=== PATIENT | female | born 1955 | race Caucasian/White ===

== ENCOUNTER → 2016-06-19 | Outpatient (CLI) | payer MEDICARE, OTHER ==
[~2016-06-19] MED LIST: ASPIRIN EC81 MG PO; CALCIUM 600 +1 EAC2 PO; CLARITIN10 M2 PO; EFFEXOR XR 75 M75 MG PO; HYDROCHLOROTHIA25 MG PO; KLOR-CON 1010 MEQ PO; NEURONTIN 400400 MG PO; NORFLEX 100 MG100 MG PO; PROAIR HFA8.5 GM INH; TENORMIN 50 MG50 MG PO; VALIUM 5 MG TAB5 MG PO; ZANTAC 150 MG150 MG PO; ZOFRAN4 MG PO
== END ==
LOC: LAB 14:42
DX: R51 Headache (principal); Z87.820 Personal history of traumatic brain injury
CPT/HCPCS: 36415; 82565; 84520

== ENCOUNTER → 2016-06-22 | Outpatient (CLI) | payer MEDICARE, OTHER | LOC: EMI 05-22 14:00 → MRI 13:00 | DX: R51 Headache (principal); Z87.820 Personal history of traumatic brain injury; Z98.890 Other specified postprocedural states; Z88.2 Allergy status to sulfonamides; Z88.1 Allergy status to other antibiotic agents; Z88.8 Allergy status to other drugs, medicaments and biological substances; Z88.5 Allergy status to narcotic agent | CPT/HCPCS: 70553; A9577 ==

== ENCOUNTER 2016-10-12 16:23 | Emergency (ER) | payer MEDICARE, OTHER ==
[2016-10-17] MEDS ORDERED: VALIUM 5 MG TAB5 MG PO (11:07)
[2016-10-17] MEDS ORDERED: HYDROCHLOROTHIA25 MG PO (11:07)
[2016-10-17] MEDS ORDERED: TENORMIN 50 MG50 MG PO (11:08)
[2016-10-17] MEDS ORDERED: ASPIRIN EC81 MG PO (11:08)
[2016-10-17] MEDS ORDERED: CLARITIN10 M2 PO (11:09)
[2016-10-17] MEDS ORDERED: CALCIUM 600 +1 EAC2 PO (11:09)
[2016-10-17] MEDS ORDERED: KLOR-CON 1010 MEQ PO (11:10)
[2016-10-17] MEDS ORDERED: NORFLEX 100 MG100 MG PO (11:10)
[2016-10-17] MEDS ORDERED: ZANTAC 150 MG150 MG PO (11:11)
[2016-10-17] MEDS ORDERED: NEURONTIN 400400 MG PO (11:12)
[2016-10-17] MEDS ORDERED: EFFEXOR XR 75 M75 MG PO (16:36)
[2016-10-17] MEDS ORDERED: ZOFRAN4 MG PO (16:37)
[2016-10-17] MEDS ORDERED: PROAIR HFA8.5 GM INH (16:41)
== END 2016-10-12 19:25 | disposition home or self-care (01) ==
LOC: ER1 16:23
DX: G89.29 Other chronic pain (principal)
CPT/HCPCS: 99281

== ENCOUNTER → 2020-09-02 | Outpatient (CLI) | payer MEDICARE, OTHER | LOC: MRI 07-28 08:30 | DX: R51.9 Headache, unspecified (principal); R29.818 Other symptoms and signs involving the nervous system; Z86.011 Personal history of benign neoplasm of the brain; G93.89 Other specified disorders of brain | CPT/HCPCS: 36415; 70553; 82565; A9577 ==

== ENCOUNTER → 2020-09-07 | Outpatient (CLI) | payer MEDICARE, OTHER | LOC: MRI 14:00 | DX: F41.9 Anxiety disorder, unspecified (principal); M54.5 Low back pain; G62.9 Polyneuropathy, unspecified; M51.34 Other intervertebral disc degeneration, thoracic region; M50.322 Other cervical disc degeneration at C5-C6 level; M48.02 Spinal stenosis, cervical region; M51.37 Other intervertebral disc degeneration, lumbosacral region; M48.07 Spinal stenosis, lumbosacral region | CPT/HCPCS: 36415; 72156; 72157; 72158; A9577 ==

== ENCOUNTER 2021-10-29 23:37 | Inpatient (IN) | payer MEDICARE, OTHER ==
[~2021-10-29] VITALS: Ht 154.9 cm; Wt 66.7 kg
[~2021-10-29 23:37] MED LIST changes: +HYDROCHLOROTH12.5 MG PO; -HYDROCHLOROTHIA25 MG PO; -KLOR-CON 1010 MEQ PO; -NEURONTIN 400400 MG PO; +NEURONTIN600 MG PO; +POTASSIUM CHLO10 MEQ PO
[2021-10-30 00:55] LABS: BUN/CREATININE RATIO 15 (0-10)
[2021-10-30 01:09] LABS: HEMOGLOBIN 12.9 gm/dl (12.3-15.3); RED BLOOD COUNT 4.18 M/UL (4.00-5.10); WHITE BLOOD COUNT 16.1 K/UL (4.5-11.0)
[2021-10-30] MEDS ORDERED: DIFLUCAN200 MG PO (10:14)
[2021-10-30] MEDS ORDERED: TRAMADOL HCL50 MG PO (10:15)
[2021-10-30] MEDS ORDERED: LOPERAMIDE2 MG PO (10:15)
[2021-10-30] MEDS ORDERED: MULTIVITAMIN1 EACH PO (10:15)
[2021-10-30] MEDS ORDERED: COQ-10100 MG PO (10:16)
[2021-10-30] MEDS ORDERED: CALCIUM CARBON600 M1 PO (10:17)
[2021-10-30] MEDS ORDERED: ASPIRIN EC325 MG PO (10:17)
[2021-10-30] MEDS ORDERED: [UNRECOGNIZED DRUG - OTHER] TOP (10:18)
[2021-10-30] MEDS ORDERED: TYLENOL EXTRA500 MG PO (10:18)
[2021-10-30] MEDS ORDERED: PROTONIX 40 MG40 M1 PO (10:19)
--- NOTE | 2021-10-30 15:49 | NUR ---
Called Dr. Gallardo about patients rash and suspicion of scabiees. She said to go ahead and put patient in contact isolation and she would order a test for scabiees.
[2021-10-31 05:43] LABS: HEMOGLOBIN 11.1 gm/dl (12.3-15.3); RED BLOOD COUNT 3.22 M/UL (4.00-5.10); WHITE BLOOD COUNT 16.1 K/UL (4.5-11.0)
[2021-10-31 06:10] LABS: BUN/CREATININE RATIO 10 (0-10)
[2021-10-31 08:14] LABS: HBSAG SCREEN Negative (Negative); HCV AB 0.1 (0.0-0.9); HEP A AB, IGM Negative (Negative); HEP B CORE AB, IGM Negative (Negative); HIV AB/P24 AG SCREEN Non Reactive (Non Reactive)
[2021-10-31 13:09] LABS: ANTI-CENTROMERE B ANTIBODIES <0.2 AI (0.0-0.9); ANTI-DNA (DS) AB QN <1 IU/mL (0-9); ANTI-JO-1 <0.2 AI (0.0-0.9); ANTICHROMATIN ANTIBODIES <0.2 AI (0.0-0.9); ANTIRIBOSOMAL P ANTIBODIES <0.2 AI (0.0-0.9); ANTISCLERODERMA-70 ANTIBODIES <0.2 AI (0.0-0.9); RNP ANTIBODIES <0.2 AI (0.0-0.9); SJOGREN'S ANTI-SS-A <0.2 AI (0.0-0.9); SJOGREN'S ANTI-SS-B <0.2 AI (0.0-0.9); SMITH ANTIBODIES <0.2 AI (0.0-0.9); SMITH/RNP ANTIBODIES <0.2 AI (0.0-0.9)
[2021-10-31 15:10] LABS: % CD 4 POS. LYMPH. 44.1 % (30.8-58.5); ABSOLUTE CD 4 HELPER 617 /uL (359-1519); BASO (ABSOLUTE) 0.1 x10E3/uL (0.0-0.2); BASOS 1 % (Not Estab.); EOS 4 % (Not Estab.); EOS (ABSOLUTE) 0.7 x10E3/uL (0.0-0.4); HEMATOCRIT 39.8 % (34.0-46.6); HEMOGLOBIN 13.5 g/dL (11.1-15.9); IMMATURE GRANS (ABS) 0.1 x10E3/uL (0.0-0.1); IMMATURE GRANULOCYTES 1 % (Not Estab.); LYMPHS 9 % (Not Estab.); LYMPHS (ABSOLUTE) 1.4 x10E3/uL (0.7-3.1); MCH 31.5 pg (26.6-33.0); MCHC 33.9 g/dL (31.5-35.7); MCV 93 fL (79-97); MONOCYTES 8 % (Not Estab.); MONOCYTES(ABSOLUTE) 1.3 x10E3/uL (0.1-0.9); NEUTROPHILS 77 % (Not Estab.); NEUTROPHILS (ABSOLUTE) 13.1 x10E3/uL (1.4-7.0); PLATELETS 361 x10E3/uL (150-450); RBC 4.28 x10E6/uL (3.77-5.28); RDW 12.5 % (11.7-15.4); WBC 16.7 x10E3/uL (3.4-10.8)
[2021-11-01 05:01] LABS: BUN/CREATININE RATIO 6 (0-10)
[2021-11-01 05:02] LABS: HEMOGLOBIN 10.7 gm/dl (12.3-15.3); WHITE BLOOD COUNT 14.4 K/UL (4.5-11.0)
[2021-11-01 05:10] LABS: RED BLOOD COUNT 1.65 M/UL (4.00-5.10)
[2021-11-01 12:14] LABS: ANTIHISTONE ANTIBODIES 1.3 Units (0.0-0.9)
[2021-11-02 05:10] LABS: HEMOGLOBIN 11.4 gm/dl (12.3-15.3); RED BLOOD COUNT 1.44 M/UL (4.00-5.10); WHITE BLOOD COUNT 11.3 K/UL (4.5-11.0)
[2021-11-02 05:17] LABS: BUN/CREATININE RATIO 10 (0-10)
[2021-11-03 06:38] LABS: HEMOGLOBIN 12.2 gm/dl (12.3-15.3)
[2021-11-03 07:02] LABS: BUN/CREATININE RATIO 11 (0-10)
[2021-11-03 08:10] LABS: RED BLOOD COUNT 3.93 M/UL (4.00-5.10)
[2021-11-03 08:12] LABS: WHITE BLOOD COUNT 12.3 K/UL (4.5-11.0)
[2021-11-03] MEDS ORDERED: LEVOFLOXACIN500 MG PO (11:43)
[2021-11-03] MEDS ORDERED: PERMETHRIN60 GM TP (11:45)
== END 2021-11-03 16:21 | disposition home or self-care (01) | DRG 872 ==
LOC: ER1 23:37 → MED SURG 4 10-30 04:41 → CDU 10-30 04:41 → MED SURG 4 10-30 14:12
PROVIDERS: Student in an Organized Health Care Education/Training Program; ADMIT Internal Medicine
DX: A41.9 Sepsis, unspecified organism (principal); L03.114 Cellulitis of left upper limb; E87.1 Hypo-osmolality and hyponatremia; L03.113 Cellulitis of right upper limb; Z20.822 Contact with and (suspected) exposure to COVID-19; R21 Rash and other nonspecific skin eruption; B86 Scabies; F17.210 Nicotine dependence, cigarettes, uncomplicated; I10 Essential (primary) hypertension; Z85.841 Personal history of malignant neoplasm of brain; Z85.43 Personal history of malignant neoplasm of ovary; Z79.01 Long term (current) use of anticoagulants; Z79.82 Long term (current) use of aspirin; Z82.49 Family history of ischemic heart disease and other diseases of the circulatory system; Z88.5 Allergy status to narcotic agent; Z88.2 Allergy status to sulfonamides; Z88.7 Allergy status to serum and vaccine; Z91.041 Radiographic dye allergy status
CPT/HCPCS: 36415; 80048; 80053; 80074; 80202; 82436; 82533; 83036; 83516; 83605; 83735; 83935; 84132; 84133; 84300; 84439; 84443; 84550; 85025; 85610; 85652; 86140; 86361; 86431; 87040; 87389; 93005; 96374; 96375; 97116; 97161; 99285; J0696; J1200; J1650; J1956; J3370; J7070